=== PATIENT | male | born 1950 | race Caucasian/White ===

== ENCOUNTER 2016-02-28 20:48 | Emergency (ER) | payer MEDICARE, OTHER ==
[~2016-02-28] VITALS: Ht 172.7 cm; Wt 93.5 kg
[~2016-02-28 20:48] MED LIST: AZIT250T94 PO; BENA40TA54 PO; FLUT9.9S NASAL; HYD25 PO; HYT5 PO; IBUP-1542 PO; LORA10TA3 PO; LORA1TAB54 PO; MECL25TA2 PO; METF500T4 PO; MEVA40 PO
[2016-02-28 20:51] VITALS: Ht 172.7 cm; Wt 93.5 kg
[2016-02-28] MEDS ORDERED: LORA10TA3 PO (21:21)
--- NOTE | 2016-02-28 21:26 | ERD ---
ER Documentation Chief Complaint Date/Time DATE: 02/28/16 TIME: 21:24 Chief Complaint SORE THROAT AND COUGH X 3 DAYS HPI 65-year-old male with a history of hypertension and diabetes presenting with complaints of itching in his throat. He has had this for 3 days with associated cough. He states he has been here for the same symptoms before. He has some runny nose with some clear phlegm. No associated fevers, chills, difficulty swallowing, difficulty speaking, chest pain or shortness of breath. He states he has received an injection here in the past for the same symptoms which really helped him. ROS All systems reviewed and are negative except as per history of present illness. Medications Home Meds Active Scripts Loratadine* (Loratadine*) 10 Mg Tablet, 10 MG PO DAILY, #30 TAB Prov:BARRINGTON COHN MD 02/28/16 Fluticasone Propionate (Flonase Allergy Relief) 9.9 Ml [place].susp, 1 SPRAY NASAL BID, #1 BOTTLE TO EACH NOSTRIL Prov:LEA BIRMINGHAM 12/25/15 Loratadine* (Loratadine*) 10 Mg Tablet, 10 MG PO DAILY, #30 TAB Prov:LEA BIRMINGHAM 12/25/15 Meclizine Hcl* (Antivert*) 25 Mg Tablet, 25 MG PO Q6H Y for DIZZINESS, #20 TAB Prov:BAO DICKSON PA-C 07/11/15 Loratadine/Pseudoephedrine* (Claritin-D* 12 Hr) 5-120 Mg Tab.er.12h, 1 TAB PO Q12, #10 TAB.SA Prov:TELMA WEEMS DO 07/08/15 Ibuprofen* (Motrin*) 600 Mg Tab, 600 MG PO Q6, #30 TAB Prov:KIERAN COTO NP 02/18/15 Azithromycin* (Zithromax*) 250 Mg Tablet, 250 MG PO .SILVINA DIRECTED, #6 TAB TAKE 500 MG (2 TABS) THE FIRST DAY THEN 250 MG (1 TAB) DAYS 2-5 Prov:KIERAN COTO NP 02/18/15 Reported Medications Metformin* (Glucophage*) 500 Mg Tab, 1 TAB PO BID 06/15/13 Terazosin Hcl* (Hytrin*) 5 Mg Capsule, 1 CAP PO HS 06/15/13 Lovastatin (Lovastatin) 40 Mg Tablet, 1 TAB PO HS 06/15/13 Hydrochlorothiazide* (Hydrochlorothiazide*) 25 Mg Tab, 1 TAB PO DAILY 06/15/13 Benazepril Hcl* (Lotensin*) 40 Mg Tablet, 0.5 TAB PO BID 06/15/13 Allergies Allergies: Coded Allergies: No Known Allergy (Unverified , 02/28/16) PMhx/Soc History of Surgery: Yes (r. knee meniscus sx) Anesthesia Reaction: No Hx Neurological Disorder: No Hx Respiratory Disorders: No Hx Cardiac Disorders: Yes (htn, dm) Hx Psychiatric Problems: No Hx Miscellaneous Medical Probl: Yes (DM) Hx Alcohol Use: No Hx Substance Use: No Hx Tobacco Use: No Smoking Status: Never smoker FmHx Family History: No diabetes Physical Exam Vitals Vital Signs Date Time Temp Pulse Resp B/P Pulse Ox O2 Delivery O2 Flow Rate FiO2 02/28/16 20:51 97.7 94 18 165/74 98 Physical Exam Const: No apparent distress Head: Atraumatic Eyes: Normal Conjunctiva ENT: Normal External Ears, Nose and Mouth. Posterior oropharynx without significant erythema or exudate. no oropharyngeal swelling Neck: Full range of motion..~ No meningismus. No lymphadenopathy. Resp: Clear to auscultation bilaterally Cardio: Regular rate and rhythm, no murmurs Abd: Soft, non tender, non distended. Normal bowel sounds Skin: No petechiae or rashes Neur: Awake and alert Psych: Normal Mood and Affect Results 24 hrs Current Medications Medications (Trade) Dose Ordered Sig/Justin Route PRN Reason Start Time Stop Time Status Last Admin Dose Admin Diphenhydramine HCl (Benadryl) 25 mg ONCE ONCE IM 02/28/16 21:30 02/28/16 21:31 Procedures/MDM Patient is presenting with symptoms of likely allergic rhinitis with postnasal drip. There is no evidence of strep throat, peritonsillar abscess, angioedema, pneumonia, or bronchitis. Patient is protecting his airway and controlling his secretions. His vitals are all stable. I agreed to give the patient an injection of Benadryl for his symptoms and will discharge him with a prescription for Claritin. I advised to follow-up with his primary care physician in 2-3 days. Return precautions were given. Departure Diagnosis: Primary Impression: Allergic rhinitis with postnasal drip Condition: Stable Patient Instructions: Allergic Rhinitis Referrals: [facility] YOU HAVE RECEIVED A MEDICAL SCREENING EXAM AND THE RESULTS INDICATE THAT YOU DO NOT HAVE A CONDITION THAT REQUIRES URGENT TREATMENT IN THE EMERGENCY DEPARTMENT. FURTHER EVALUATION AND TREATMENT OF YOUR CONDITION CAN WAIT UNTIL YOU ARE SEEN IN YOUR DOCTORS OFFICE WITHIN THE NEXT 1-2 DAYS. IT IS YOUR RESPONSIBILITY TO MAKE AN APPOINTMENT FOR FOLOW-UP CARE. IF YOU HAVE A PRIMARY DOCTOR --you should call your primary doctor and schedule an appointment IF YOU DO NOT HAVE A PRIMARY DOCTOR YOU CAN CALL OUR PHYSICIAN REFERRAL HOTLINE AT IF YOU CAN NOT AFFORD TO SEE A PHYSICIAN YOU CAN CHOSE FROM THE FOLLOWING [facility] [id number] [facility] [address] [facility] [address] [facility] [address] [facility] [address] [facility]. [facility]. [address] MD Feb 28, 2016 21:26
[2016-02-28] MEDS ORDERED: DIPHENHYDRAMINE 50 MG INJ IM ONE (21:30)
[2016-02-28 21:48] VITALS: BP 153/72; PULSE 86; RESP 18; TEMP 98.6
== END 2016-02-28 21:48 | disposition home or self-care (01) ==
LOC: FTE 20:48
DX: J30.9 Allergic rhinitis, unspecified (principal); R09.82 Postnasal drip; I10 Essential (primary) hypertension; E11.9 Type 2 diabetes mellitus without complications; Z79.84 Long term (current) use of oral hypoglycemic drugs
CPT/HCPCS: 96372; 99284; J1200

== ENCOUNTER 2016-03-11 23:58 | Emergency (ER) | payer MEDICARE, OTHER ==
[~2016-03-11] VITALS: Ht 167.6 cm; Wt 93.0 kg
[2016-03-12 00:04] VITALS: Ht 167.6 cm; Wt 93.0 kg
[2016-03-12 01:17] LABS: URINE BLOOD (Dip) POC Trace-intact (NEGATIVE)
--- NOTE | 2016-03-12 01:28 | ERD ---
ER Documentation Chief Complaint Date/Time DATE: 03/12/16 TIME: 01:25 Chief Complaint COUGH, COLD, CONGESTION AND FEVER X 3 DAYS HPI This patient is a 65-year-old male with past medical history of hypertension and diabetes presenting to the emergency department with burning on urination which has been ongoing intermittently for the past 2 days. The patient denies any hematuria, fever, chills, nausea, vomiting, diarrhea or other symptoms at this time. There are no other alleviating or exacerbating factors at this time. ROS All systems reviewed and are negative except as per history of present illness. Medications Home Meds Active Scripts Ciprofloxacin Hcl* (Ciprofloxacin Hcl*) 500 Mg Tablet, 500 MG PO BID for 7 Days , TAB Prov:SHEMAR OSMAN PA-C 03/12/16 Loratadine* (Loratadine*) 10 Mg Tablet, 10 MG PO DAILY, #30 TAB Prov:BARRINGTON COHN MD 02/28/16 Fluticasone Propionate (Flonase Allergy Relief) 9.9 Ml [place].susp, 1 SPRAY NASAL BID, #1 BOTTLE TO EACH NOSTRIL Prov:LEA BIRMINGHAM 12/25/15 Loratadine* (Loratadine*) 10 Mg Tablet, 10 MG PO DAILY, #30 TAB Prov:LEA BIRMINGHAM 12/25/15 Meclizine Hcl* (Antivert*) 25 Mg Tablet, 25 MG PO Q6H Y for DIZZINESS, #20 TAB Prov:BAO DICKSON PA-C 07/11/15 Loratadine/Pseudoephedrine* (Claritin-D* 12 Hr) 5-120 Mg Tab.er.12h, 1 TAB PO Q12, #10 TAB.SA Prov:TELMA WEEMS DO 07/08/15 Ibuprofen* (Motrin*) 600 Mg Tab, 600 MG PO Q6, #30 TAB Prov:KIERAN COTO NP 02/18/15 Azithromycin* (Zithromax*) 250 Mg Tablet, 250 MG PO .JosePACK DIRECTED, #6 TAB TAKE 500 MG (2 TABS) THE FIRST DAY THEN 250 MG (1 TAB) DAYS 2-5 Prov:KIERAN COTO NP 02/18/15 Reported Medications Metformin* (Glucophage*) 500 Mg Tab, 1 TAB PO BID 06/15/13 Terazosin Hcl* (Hytrin*) 5 Mg Capsule, 1 CAP PO HS 06/15/13 Lovastatin (Lovastatin) 40 Mg Tablet, 1 TAB PO HS 06/15/13 Hydrochlorothiazide* (Hydrochlorothiazide*) 25 Mg Tab, 1 TAB PO DAILY 06/15/13 Benazepril Hcl* (Lotensin*) 40 Mg Tablet, 0.5 TAB PO BID 06/15/13 Allergies Allergies: Coded Allergies: No Known Allergy (Unverified , 02/28/16) PMhx/Soc History of Surgery: Yes (r. knee meniscus sx) Anesthesia Reaction: No Hx Neurological Disorder: No Hx Respiratory Disorders: No Hx Cardiac Disorders: Yes (htn, dm) Hx Psychiatric Problems: No Hx Miscellaneous Medical Probl: Yes (DM) Hx Alcohol Use: No Hx Substance Use: No Hx Tobacco Use: No Smoking Status: Never smoker FmHx Noncontributory for chief complaint Physical Exam Vitals Vital Signs Date Time Temp Pulse Resp B/P Pulse Ox O2 Delivery O2 Flow Rate FiO2 03/12/16 00:04 97.5 80 20 166/74 96 Physical Exam INITIAL VITAL SIGNS: Reviewed by me GENERAL: The patient is well developed and appropriate for usual state of health in no apparent distress HEENT: Pupils equal, round, and reactive to light. EOMI. There is no scleral icterus. NECK: C-spine is soft and supple, there is no meningismus. There is no cervical lymphadenopathy. LUNGS: Clear to auscultation bilaterally. There are no rales, wheezes or rhonchi. HEART: Regular rate and rhythm, no murmurs, clicks, rubs or gallops. ABDOMEN: Soft, non-tender, non-distended. There are bowel sounds in all four quadrants. No rebound or guarding. : There is no erythema, discharge, or edema to the glans penis. There is no scrotal erythema or edema. There is no CVA tenderness EXTREMITIES: There is no peripheral cyanosis or edema. No focal swelling or erythema. NEUROLOGICAL: The patient moves all four extremities with 5/5 strength. Cranial nerves II - XII are intact. Normal gait. Alert and oriented SKIN: There is no apparent rash or petechiae. HEME/LYMPHATIC: There is no evidence of excessive bruising or lymphedema. PSYCHIATRIC: The patient does not appear anxious or depressed. Results 24 hrs Laboratory Tests Test 03/12/16 01:17 Bedside Urine Blood Trace-intact Bedside Urine Glucose (UA) Negative Bedside Urine Ketones (LAB) Negative Bedside Urine Leukocyte Esterase (L 1+ Bedside Urine Nitrite (LAB) Negative Bedside Urine Protein (LAB) Negative Bedside Urine pH (LAB) 6.0 Current Medications Medications (Trade) Dose Ordered Sig/Justin Route PRN Reason Start Time Stop Time Status Last Admin Dose Admin Ceftriaxone Sodium (Rocephin) 250 mg ONCE ONCE IM 03/12/16 02:30 03/12/16 02:31 DC 03/12/16 02:14 Azithromycin (Zithromax) 1,000 mg ONCE ONCE PO 03/12/16 02:30 03/12/16 02:31 DC 03/12/16 02:14 Procedures/MDM Labs: Lab results reviewed. Urinalysis shows 1+leukocytes present. Medications in the department: 1 gram PO Azithromycin. 250 mg IM Rocephin. MDM: 65-year-old male presenting to the department with pain while urinating for the past 2 days. On physical examination there is no urethral discharge or erythema or edema to the glans penis there is no erythema or edema to the scrotum. On urinalysis there is 1+ leukocyte and the patient's primary diagnosis is urinary tract infection, secondary diagnosis is urethritis. A GC chlamydia was ordered and the results will be relayed to the patient when received. The patient will be given a prescription for ciprofloxacin for outpatient treatment of urinary tract infection. The patient will be treated in the department with 1 gram Azithromycin and 250 mg Rocephin for Chlamydia/ Gonorrhea, while results are pending. The patient's questions and concerns of been addressed. The patient understands the diagnosis. The patient is stable for discharge at this time. Departure Diagnosis: Primary Impression: Urinary tract infection Additional Impression: Urethritis Condition: Stable Patient Instructions: Urethritis in Men, Urinary Tract Infections in Men Additional Instructions: No mas mejor en 2-3 will, regresar. Mas peor en 24 horas, regresear rapidamente. Ir a doctor primario in 5-7 will. Usar instrucciones cuando mustapha medicamento. The patient's blood pressure was elevated (>120/80) but appears stable without evidence of hypertension emergency or urgency. The patient was counseled about the risks of hypertension and urged to pursue outpatient monitoring and therapy within a week with their primary care physician. SHEMAR OSMAN PA-C Mar 12, 2016 01:28
[2016-03-12] MEDS ORDERED: CIPR500T4 PO (02:06)
[2016-03-12] MEDS ORDERED: CEFTRIAXONE 250 MG INJ IM ONE (02:30)
[2016-03-12] MEDS ORDERED: AZITHROMYCIN 250 MG TAB PO ONE (02:30)
== END 2016-03-12 02:34 | disposition home or self-care (01) ==
LOC: FTE 23:58
DX: N39.0 Urinary tract infection, site not specified (principal); I10 Essential (primary) hypertension; E11.9 Type 2 diabetes mellitus without complications; Z79.84 Long term (current) use of oral hypoglycemic drugs
CPT/HCPCS: 81003; 87591; 96372; 99284; J0696

== ENCOUNTER 2016-12-17 22:50 | Emergency (ER) | payer MEDICARE, OTHER ==
[~2016-12-17] VITALS: Ht 172.7 cm; Wt 91.0 kg
[~2016-12-17 22:50] MED LIST changes: +CIPR500T4 PO; -HYD25 PO; +HYDR25TA6 PO
[2016-12-17 22:57] VITALS: Ht 172.7 cm; Wt 91.0 kg
[2016-12-18] MEDS ORDERED: ONDANSETRON 4 MG INJ IV STA (00:21)
--- NOTE | 2016-12-18 00:21 | ERD ---
ER Documentation Chief Complaint Chief Complaint bib self, cc: generalized body aches and cough HPI This 66 yearold male patient present to ED with c/o diarrhea this AM, epigastric pain that improved with Pepto. pt reports fatigue, epigastric pain returned with cramps and belching. denies chest pain, SOB, palpations, or dizziness, medical history + DM, HTN, hyperlipidemia ROS All systems reviewed and are negative except as per history of present illness. Medications Home Meds Active Scripts Ciprofloxacin Hcl* (Ciprofloxacin Hcl*) 500 Mg Tablet, 500 MG PO BID for 7 Days , TAB Prov:SHEMAR OSMAN PA-C 03/12/16 Loratadine* (Loratadine*) 10 Mg Tablet, 10 MG PO DAILY, #30 TAB Prov:BARRINGTON COHN MD 02/28/16 Fluticasone Propionate (Flonase Allergy Relief) 9.9 Ml [place].susp, 1 SPRAY NASAL BID, #1 BOTTLE TO EACH NOSTRIL Prov:LEA BIRMINGHAM 12/25/15 Loratadine* (Loratadine*) 10 Mg Tablet, 10 MG PO DAILY, #30 TAB Prov:LEA BIRMINGHAM 12/25/15 Meclizine Hcl* (Antivert*) 25 Mg Tablet, 25 MG PO Q6H Y for DIZZINESS, #20 TAB Prov:BAO DICKSON PA-C 07/11/15 Loratadine/Pseudoephedrine* (Claritin-D* 12 Hr) 5-120 Mg Tab.er.12h, 1 TAB PO Q12, #10 TAB.SA Prov:TELMA WEEMS DO 07/08/15 Ibuprofen* (Motrin*) 600 Mg Tab, 600 MG PO Q6, #30 TAB Prov:KIERAN COTO NP 02/18/15 Azithromycin* (Zithromax*) 250 Mg Tablet, 250 MG PO .SILVINA DIRECTED, #6 TAB TAKE 500 MG (2 TABS) THE FIRST DAY THEN 250 MG (1 TAB) DAYS 2-5 Prov:KIERAN COTO NP 02/18/15 Reported Medications Metformin* (Glucophage*) 500 Mg Tab, 1 TAB PO BID 06/15/13 Terazosin Hcl* (Hytrin*) 5 Mg Capsule, 1 CAP PO HS 06/15/13 Lovastatin (Lovastatin) 40 Mg Tablet, 1 TAB PO HS 06/15/13 Hydrochlorothiazide* (Hydrochlorothiazide*) 25 Mg Tab, 1 TAB PO DAILY 06/15/13 Benazepril Hcl* (Lotensin*) 40 Mg Tablet, 0.5 TAB PO BID 06/15/13 Allergies Allergies: Coded Allergies: No Known Allergy (Unverified , 02/28/16) PMhx/Soc History of Surgery: Yes (r. knee meniscus sx) Anesthesia Reaction: No Hx Neurological Disorder: No Hx Respiratory Disorders: No Hx Cardiac Disorders: Yes (htn, dm) Hx Psychiatric Problems: No Hx Miscellaneous Medical Probl: Yes (DM) Hx Alcohol Use: No Hx Substance Use: No Hx Tobacco Use: No Physical Exam Vitals Vital Signs Date Time Temp Pulse Resp B/P Pulse Ox O2 Delivery O2 Flow Rate FiO2 12/17/16 22:57 99.0 96 19 141/81 100 Vitals stable, triage notes reviewed Physical Exam Const: Well-nourished well-appearing well-hydrated 66-year-old male patient in no acute distress Head: Eyes: ENT: Neck: Neck supple, no JVD Resp: Clear to auscultation bilaterally, no rales wheezes or rhonchi Cardio: S1-S2, no S3-S4 regular rate and rhythm, no murmurs Abd: Abdomen distended, firm, tympanic to percussion, nontender to palpation , it is CVA tenderness, Lopez's sign negative, negative CVA tenderness, Skin: No petechiae or rashes Back: No midline or flank tenderness Ext: No cyanosis, or edema Neur: Awake and alert Psych: Normal Mood and Affect Result Diagram: 12/18/164212/18/163 Results 24 hrs Laboratory Tests Test 12/18/16 00:43 White Blood Count 11.510^3/ul Red Blood Count 4.2710^6/ul Hemoglobin 12.7g/dl Hematocrit 38.1% Mean Corpuscular Volume 89.2fl Mean Corpuscular Hemoglobin 29.7pg Mean Corpuscular Hemoglobin Concent 33.3g/dl Red Cell Distribution Width 12.6% Platelet Count 14930^3/UL Mean Platelet Volume 10.7fl Neutrophils % 78.0% Lymphocytes % 11.4% Monocytes % 8.2% Eosinophils % 1.4% Basophils % 0.3% Nucleated Red Blood Cells % 0.0/100WBC Neutrophils # 9.010^3/ul Lymphocytes # 1.310^3/ul Monocytes # 1.010^3/ul Eosinophils # 0.210^3/ul Basophils # 0.010^3/ul Nucleated Red Blood Cells # 0.010^3/ul Urine Color YELLOW Urine Clarity CLEAR Urine pH 7.0 Urine Specific Hanna 1.020 Urine Ketones NEGATIVEmg/dL Urine Nitrite NEGATIVEmg/dL Urine Bilirubin NEGATIVEmg/dL Urine Urobilinogen NEGATIVEmg/dL Urine Leukocyte Esterase NEGATIVELeu/ul Urine Hemoglobin NEGATIVEmg/dL Urine Glucose NEGATIVEmg/dL Urine Total Protein NEGATIVEmg/dl Sodium Level 136mmol/L Potassium Level 4.4mmol/L Chloride Level 100mmol/L Carbon Dioxide Level 29mmol/L Anion Gap 11 Blood Urea Nitrogen 29mg/dl Creatinine 1.04mg/dl Glucose Level 114mg/dl Calcium Level 9.2mg/dl Total Bilirubin 0.2mg/dl Direct Bilirubin 0.00mg/dl Indirect Bilirubin 0.2mg/dl Aspartate Amino Transf (AST/SGOT) 27IU/L Alanine Aminotransferase (ALT/SGPT) 45IU/L Alkaline Phosphatase 69IU/L Troponin I < 0.012ng/ml Total Protein 7.4g/dl Albumin 4.1g/dl Globulin 3.30g/dl Albumin/Globulin Ratio 1.24 Lipase 127U/L Current Medications Medications (Trade) Dose Ordered Sig/Justin Route PRN Reason Start Time Stop Time Status Last Admin Dose Admin Ondansetron HCl (Zofran Inj) 4 mg ONCE STAT IV 12/18/16 00:21 12/18/16 00:25 DC 12/18/16 00:52 Aspirin (Aspirin) 324 mg ONCE ONCE PO 12/18/16 00:30 12/18/16 00:31 DC 12/18/16 00:51 Pantoprazole (Protonix Iv) 40 mg ONCE ONCE IV 12/18/16 00:30 12/18/16 00:31 DC 12/18/16 00:52 Interpretation text CBC shows no evidence of hemorrhage or infection Chemistry shows no evidence of significant electrolyte abnormalities or renal insufficiency Liver function tests shows no evidence of acute biliary or hepatic dysfunction Lipase shows no evidence of acute pancreatitis Cardiac biomarkers show no evidence of acute myocardial injury or coronary ischemia Procedures/MDM EKG read by Dr. Mckeon Rate/Rhythm: Regular rate and rhythm at a rate of 80 bpm no ectopy Intervals: Normal Impression: No evidence of ischemia or arrhythmia PROCEDURE: XR Chest. CLINICAL INDICATION: Abdominal pain. TECHNIQUE: Single frontal view of the chest. COMPARISON: Plain film chest dated 07/11/2015 FINDINGS: The cardiomediastinal silhouette is within normal limits. The lungs are clear. No signs of pleural fluid or pneumothorax are seen. The osseous structures and soft tissues are unremarkable. IMPRESSION: No evidence for active cardiopulmonary disease. Electronically viewed and signed by Physician Tess on 12/18/2016 01:12 PROCEDURE: CT Abdomen and Pelvis without contrast. CLINICAL INDICATION: Abdominal pain. TECHNIQUE: A CT scan of the abdomen and pelvis was performed without intravenous contrast. Coronal and sagittal reformatted images were generated. Images were reviewed on a high-resolution PACS workstation. CTDIvol: 18.20 mGy. DLP: 1233.97 mGy-cm. One or more of the following dose reduction techniques were used: - Automated exposure control. - Adjustment of the mA and/or kV according to patient size. - Use of iterative reconstruction technique. COMPARISON: None. FINDINGS: There is a small pericardial effusion. The lung bases are clear. Evaluation of the abdominal and pelvic viscera is limited by the lack of oral and intravenous contrast. The liver is unremarkable. The gallbladder is normal in appearance. The common bile duct is not dilated. The spleen is not enlarged. No pancreatic lesion is identified and there is no pancreatic ductal dilatation. The adrenal glands are unremarkable. The kidneys are normal in size. There is mild symmetric perinephric fat stranding, probably age-related. No hydronephrosis is seen. No urinary stone is identified. There are bilateral renal cysts measuring up to 1.8 cm on the left. The small and large bowel are normal in caliber. There is no bowel wall thickening. The appendix is normal. The urinary bladder is unremarkable. The pelvic organs are within normal limits. There is a small fat containing right inguinal hernia. No lymphadenopathy is identified. There is no ascites. No pneumoperitoneum is seen. There are minimal arterial calcifications. No suspicious osseous lesion is idenitified. IMPRESSION: 1. No inflammation, mass, or lymphadenopathy. 2. Normal appendix. 3. No obstructive uropathy or urinary stone. 4. Small fat containing right inguinal hernia. 5. Small pericardial effusion. This 66-year-old male patient presents to emergency department with abdominal pain, distention, belching, diarrhea this morning which has subsided. Patient is a diabetic with hypertension, and high cholesterol. Emergency room course includes history, and physical exam, given patient's age and symptoms is working differential diagnosis includes acute coronary syndromes, cholecystitis , pancreatitis, diverticulitis. Patient receives EKG normal sinus rhythm at a ventricular rate of 80 bpm, chest x-ray negative for evidence of cardiopulmonary disease as read by radiologist. Serology with mild elevation of WBCs this is a subclinical finding, no hemorrhage, anemia noted, no evidence of renal insufficiency electrolyte imbalance, pancreatitis, hepatitis, or coronary ischemia. Urinalysis negative for evidence of leukocytosis, nitrates or hematuria. Patient receives 1 L of normal saline, four 81 mg baby aspirin chewed, Zofran, Protonix, and CAT scan of abdomen is read by radiologist, no inflammation, mass, or lymphadenopathy, normal appendix, no obstruction uropathy , or urinary stone. Small fat-containing right inguinal hernia, small pericardial effusion see above for full documentation. This small pericardial effusion discussed with supervising physician Dr. Mckeon, no intervention indicated emergently, patient to follow-up with primary care physician. Plan to discharge home with ranitidine 150 twice daily, Mylanta as needed, follow-up with primary care physician for reevaluation in 48 hours, return to emergency department for any change in symptoms, chest pain, shortness of breath, palpitations, dizziness, nausea, or vomiting. Patient is stable with no new complaints during ER course, clinically there is no current evidence to suggest meningitis, sepsis, acute abdomen, acute coronary syndromes, pulmonary embolism or any other emergent condition appearing to require further evaluation or hospitalization. I feel the patient is stable for discharge at this time. I have discussed results, examination findings, the treatment plan with the patient and family present prior to discharge. Indications for emergent reevaluation, side effects of medication were also discussed. All questions were answered. Patient verbalizes understanding and agrees with plan of care. Departure Diagnosis: Primary Impression: Gastroenteritis Condition: Good Patient Instructions: Gastroenteritis, Non-Infectious (Child) (Adult) [facility]errals[facility] Additional Instructions: Thank you for for coming to [facility] for your care today. Please ask your nurse or provider if you have questions about your care today and do not leave until all your questions have been answered. Please use any medications given as directed and follow-up with your doctor (or the doctor you were referred to) in the next 2-3 days. If you do not have a primary care doctor you may follow up at the [facility] (listed below). You may also use motrin and tylenol as needed for fever and/or pain unless instructed otherwise by your provider or nurse. Indications for more urgent follow-up have been discussed, but you may return to the Emergency Department at ANY time for any worrisome or worsening symptoms. If you have abdominal pain, please know that no test or exam you received is perfect and you should follow up within 8 hours for continued pain. If you had any imaging studies today, such as an X-Ray or CT Scan, these studies will be reviewed later by a radiologist. You will be called if there are important findings that were not identified today, so make sure the contact information you provided at registration is correct. If you received any narcotic pain control medicine today, such as Vicodin, Morphine or Dilaudid, your coordination and judgment may be affected for a number of hours. Please do not drive or operate heavy machinery, and you may want someone to assist you at home. If you were given a prescription for narcotic medication, be aware that it is very addictive- use sparingly and only if necessary. LORELEI BUSTAMANTE Dec 18, 2016 00:21
[2016-12-18] MEDS ORDERED: ASPIRIN 81 MG TAB PO ONE (00:30)
[2016-12-18] MEDS ORDERED: PANTOPRAZOLE 40 MG INJ IV ONE (00:30)
--- NOTE | 2016-12-18 01:13 | RADRPT ---
PROCEDURE: XR Chest. CLINICAL INDICATION: Abdominal pain. TECHNIQUE: Single frontal view of the chest. COMPARISON: Plain film chest dated 07/11/2015 FINDINGS: The cardiomediastinal silhouette is within normal limits. The lungs are clear. No signs of pleural f luid or pneumothorax are seen. The osseous structures and soft tissues are unremarkable. IMPRESSION: No evidence for active cardiopulmonary disease. RPTAT: [facility] Physician Tess Date Time Electronically viewed and signed by Irene Sanchez Physician on 12/18/2016 01:12 RS/
[2016-12-18 01:28] LABS: BASOPHILS % 0.3 % (0.0-2.0); EOSINOPHILS # 0.2 10^3/ul (0.0-0.5); EOSINOPHILS % 1.4 % (0.0-7.0); HEMATOCRIT 38.1 % (42.0-52.0); HEMOGLOBIN 12.7 g/dl (14.0-18.0); LYMPHOCYTES # 1.3 10^3/ul (0.8-2.9); LYMPHOCYTES % 11.4 % (15.0-51.0); MEAN CORPUSCULAR HEMOGLOBIN 29.7 pg (29.0-33.0); MEAN CORPUSCULAR HGB CONC 33.3 g/dl (32.0-37.0); MEAN CORPUSCULAR VOLUME 89.2 fl (82.0-101.0); MEAN PLATELET VOLUME 10.7 fl (7.4-10.4); MONOCYTES % 8.2 % (0.0-11.0); PLATELET COUNT 213 10^3/UL (140-415); RED BLOOD COUNT 4.27 10^6/ul (4.70-6.10); RED CELL DISTRIBUTION WIDTH 12.6 % (11.5-14.5); WHITE BLOOD COUNT 11.5 10^3/ul (4.8-10.8)
--- NOTE | 2016-12-18 01:37 | RADRPT ---
PROCEDURE: CT Abdomen and Pelvis without contrast. CLINICAL INDICATION: Abdominal pain. TECHNIQUE: A CT scan of the abdomen and pelvis was performed without intravenous contrast. Tejeda l and sagittal reformatted images were generated. Images were reviewed on a high-resolution PACS wor kstation. CTDIvol: 18.20 mGy. DLP: 1233.97 mGy-cm. One or more of the following dose reduction techniques were used: - Automated exposure control. - Adjustment of the mA and/or kV according to patient size. - Use of iterative reconstruction technique. COMPARISON: None. FINDINGS: There is a small pericardial effusion. The lung bases are clear. Evaluation of the abdominal and pelvic viscera is limited by the lack of oral and intravenous contra st. The liver is unremarkable. The gallbladder is normal in appearance. The common bile duct is not dila neftali. The spleen is not enlarged. No pancreatic lesion is identified and there is no pancreatic ducta l dilatation. The adrenal glands are unremarkable. The kidneys are normal in size. There is mild symmetric perinephric fat stranding, probably age-rela neftali. No hydronephrosis is seen. No urinary stone is identified. There are bilateral renal cysts altaf suring up to 1.8 cm on the left. The small and large bowel are normal in caliber. There is no bowel wall thickening. The appendix is normal. The urinary bladder is unremarkable. The pelvic organs are within normal limits. There is a small fa t containing right inguinal hernia. No lymphadenopathy is identified. There is no ascites. No pneumoperitoneum is seen. There are minima l arterial calcifications. No suspicious osseous lesion is idenitified. IMPRESSION: 1. No inflammation, mass, or lymphadenopathy. 2. Normal appendix. 3. No obstructive uropathy or urinary stone. 4. Small fat containing right inguinal hernia. 5. Small pericardial effusion. RPTAT: HTAR .Dayo Wilkes MD, MD Date Time Electronically viewed and signed by .Dayo Wilkes MD, on 12/18/2016 01:37 .R/
[2016-12-18 01:49] LABS: ALANINE AMINOTRANSFERASE 45 IU/L (13-69); ALBUMIN 4.1 g/dl (3.3-4.9); ALBUMIN/GLOBULIN RATIO 1.24; ALKALINE PHOSPHATASE 69 IU/L (42-121); ANION GAP 11 (8-16); ASPARTATE AMINO TRANSFERASE 27 IU/L (15-46); BILIRUBIN,INDIRECT 0.2 mg/dl (0-1.1); BILIRUBIN,TOTAL 0.2 mg/dl (0.2-1.3); BLOOD UREA NITROGEN 29 mg/dl (7-20); CALCIUM 9.2 mg/dl (8.4-10.2); CARBON DIOXIDE 29 mmol/L (21-31); CHLORIDE 100 mmol/L (97-110); CREATININE 1.04 mg/dl (0.61-1.24); GLUCOSE 114 mg/dl (70-220); POTASSIUM 4.4 mmol/L (3.5-5.1); SODIUM 136 mmol/L (135-144); TOTAL PROTEIN 7.4 g/dl (6.1-8.1)
[2016-12-18 02:00] LABS: ADD UMIC NO; UR ASCORBIC ACID NEGATIVE (NEGATIVE); UR BILIRUBIN (Dip) NEGATIVE (NEGATIVE); UR BLOOD (Dip) NEGATIVE (NEGATIVE); UR CLARITY CLEAR (CLEAR); UR COLOR YELLOW (YELLOW); UR GLUCOSE (Dip) NEGATIVE (NEGATIVE); UR KETONES (Dip) NEGATIVE (NEGATIVE); UR LEUKOCYTE ESTERASE (Dip) NEGATIVE Leu/ul (NEGATIVE); UR NITRITE (Dip) NEGATIVE (NEGATIVE); UR TOTAL PROTEIN (Dip) NEGATIVE (NEGATIVE); UR UROBILINOGEN (Dip) NEGATIVE (NEGATIVE)
[2016-12-18 02:10] LABS: TROPONIN-I < 0.012 ng/ml (0.00-0.12)
[2016-12-18 03:36] VITALS: BP 128/72; PULSE 76; RESP 16
[2016-12-18] MEDS ORDERED: MAG-19 PO (03:41)
[2016-12-18] MEDS ORDERED: RANI150T9 PO (03:41)
== END 2016-12-18 03:46 | disposition home or self-care (01) ==
LOC: FTE 22:50
DX: K52.9 Noninfective gastroenteritis and colitis, unspecified (principal); I10 Essential (primary) hypertension; E11.9 Type 2 diabetes mellitus without complications; Z79.84 Long term (current) use of oral hypoglycemic drugs
CPT/HCPCS: 36415; 71010; 74176; 80053; 81003; 83690; 84484; 85025; 93005; 96374; 96375; 99285; C9113; J2405

== ENCOUNTER 2017-03-25 18:30 | Emergency (ER) | END 2017-03-25 20:07 | disposition home or self-care (01) ==

== ENCOUNTER 2017-07-02 21:21 | Emergency (ER) | END 2017-07-03 00:34 | disposition home or self-care (01) ==

== ENCOUNTER 2017-07-30 05:29 | Emergency (ER) | END 2017-07-30 06:27 | disposition home or self-care (01) ==

== ENCOUNTER 2017-10-24 10:48 | Emergency (ER) | END 2017-10-24 11:35 | disposition home or self-care (01) ==

== ENCOUNTER 2018-02-20 14:48 | Emergency (ER) | payer MEDICARE, OTHER ==
[~2018-02-20] VITALS: Ht 167.6 cm; Wt 88.0 kg
[~2018-02-20 14:48] MED LIST changes: -AZIT250T94 PO; +BENA20TA4 PO; -BENA40TA54 PO; -CIPR500T4 PO; -FLUT9.9S NASAL; -HYT5 PO; -IBUP-1542 PO; -LORA10TA3 PO; -LORA1TAB54 PO; -MECL25TA2 PO; +METF-849 PO; -METF500T4 PO
[2018-02-20 14:51] VITALS: BP 139/74; PULSE 91; RESP 20; Ht 167.6 cm; Wt 88.0 kg
[2018-02-20] MEDS ORDERED: SODI126M NASAL (15:47)
[2018-02-20] MEDS ORDERED: GUAI-637 PO (15:47)
--- NOTE | 2018-02-20 15:53 | ERD ---
ER Documentation Chief Complaint Chief Complaint Complains of flu like symptoms HPI 67-year-old male with history of diabetes and hypertension presents the ED complaining of cough and runny nose times 5 days. Cough is nonproductive. Patient reports decreased appetite. Patient denies any fever, shortness of breath, headache or body aches, abdominal pain, vomiting, or diarrhea. Denies any other medical history. ROS All systems reviewed and are negative except as per history of present illness. Medications Home Meds Active Scripts Guaifenesin* (Robitussin*) 100 Mg/5 Ml Syrup, 200 MG PO Q4H PRN for COUGH, #120 ML Prov:JESSIKA MOREJON. JEWELRY SORTER 02/20/18 Sodium Chloride (Saline Nasal Mist) 126 Ml Mist, 2 SPRAY NASAL Q2H PRN for NASAL CONGESTION, #1 BOTTLE Prov:JESSIKA MOREJON. JEWELRY SORTER 02/20/18 Reported Medications Benazepril Hcl* (Benazepril Hcl*) 20 Mg Tablet, 20 MG PO BID, #60 TAB 10/24/17 Metformin* (Glucophage*) 500 Mg Tab, 1 TAB PO BID 06/15/13 Lovastatin (Lovastatin) 40 Mg Tablet, 1 TAB PO HS 06/15/13 Hydrochlorothiazide* (Hydrochlorothiazide*) 25 Mg Tab, 1 TAB PO DAILY 06/15/13 Allergies Allergies: Coded Allergies: No Known Allergy (Unverified , 02/28/16) PMhx/Soc History of Surgery: Yes (r. knee meniscus sx) Anesthesia Reaction: No Hx Neurological Disorder: No Hx Respiratory Disorders: No Hx Cardiac Disorders: Yes (htn, dm, high cholesterol) Hx Psychiatric Problems: No Hx Miscellaneous Medical Probl: Yes (DM) Hx Alcohol Use: Yes (socially) Hx Substance Use: No Hx Tobacco Use: No Smoking Status: Never smoker Physical Exam Vitals Vital Signs Date Temp Pulse Resp B/P (MAP) Pulse Ox O2 O2 Flow FiO2 Time Delivery Rate 02/20/18 98.0 91 20 139/74 97 14:51 (95) Physical Exam General: Well-developed, well-nourished, conscious and coherent, in no distress Skin: Warm and dry without rash, good texture and turgor Head: Normocephalic without evidence of trauma Nose/Face: Nasal mucosa erythematous and swollen Mouth/throat: Mucous membranes are moist. Posterior pharynx clear without erythema or exudates Chest: Normal AP diameter. Good expansion without retractions. Nontender. Lungs are clear to auscultate bilaterally with good tidal volume Heart: Regular rate and rhythm. No murmur, rub, or gallops heard Extremities: Full range of motion. Good strength bilaterally. No erythema, ecchymosis, or edema. Peripheral pulses are intact. Sensation intact Neuro: Alert and oriented 4, GCS 15. Procedures/MDM Patient is afebrile, in no respiratory distress. Lungs are clear to auscultate. I doubt that patient has pneumonia or bronchitis. Likely patient's symptoms are result of viral upper respiratory infection. I doubt influenza. Patient appears well, stable for discharge and outpatient management. Medical decision making shared with patient and family. Education provided to patient and family. Patient and family expressed understanding of the plan. Medications on discharge: Saline nasal spray, Robitussin. Follow-up: Primary care provider in 2-3 days or return to ED if worse. Disclaimer: Inadvertent spelling and grammatical errors are likely due to EHR/dictation software use and do not reflect on the overall quality of patient care. Also, please note that the electronic time recorded on this note does not necessarily reflect the actual time of the patient encounter. Departure Diagnosis: Primary Impression: Upper respiratory infection URI type: acute nasopharyngitis (common cold) Qualified Codes: J00 - Acute nasopharyngitis [common cold] Condition: Stable Patient Instructions: Adult Self-Care for Colds Referrals: DOCTOR,NOT ON STAFF (PCP) [facility] ([facility]) Usted se oseguera hecho un examen mdico de control que le indica que no est en eduardo condicin que requiera tratamiento urgente en el Departamento de Emergencia. Un estudio ms profundo y el tratamiento de pereira condicin pueden esperar sin ningn riesgo hasta que usted sea atendida/o en el consultorio de pereira mdico o eduardo clnica. Es responsabilidad suya arreglar eduardo sylwia para el seguimiento del alysa. MANEJO DE CONDICIONES NO URGENTES EN EL FUTURO 1) Si usted tiene un mdico de atencin primaria: Usted debera llamar a pereira mdico de atencin primaria antes de venir al departamento de emergencia. Despus de las horas de consultorio, pereira doctor o pereira asociado/a est disponible por telfono. El mdico o enfermero de elton en el servicio telefnico puede asesorarle por case medio para atender el problema, o alysa contrario se puede programar eduardo sylwia. 2) Si usted no tiene un mdico de atencin primaria: Llame al mdico o clnica de referencia que aparece abajo fay las horas de consultorio para hacer eduardo sylwia para que le vean. CLINICAS: [place] [phone] [facility] [phone] [facility] [phone] [facility]. [place] [phone] [facility]. [place] [phone] [facility]. [phone] [address] Additional Instructions: Llame al doctor MAANA y dinesh eduardo SYLWIA PARA DENTRO DE 2-3 WRIGHT.Dgale a la secretaria que nosotros le instruimos hacer esta sylwia.Avise o llame si pereira condicin se empeora antes de la sylwia. Regresa aqui si peor o no mejor. JESSIKA MOREJON NP Feb 20, 2018 15:53
== END 2018-02-20 15:57 | disposition home or self-care (01) ==
LOC: FTE 14:48
DX: J06.9 Acute upper respiratory infection, unspecified (principal); I10 Essential (primary) hypertension; E11.9 Type 2 diabetes mellitus without complications; R40.2412 Glasgow coma scale score 13-15, at arrival to emergency department; Z79.84 Long term (current) use of oral hypoglycemic drugs
CPT/HCPCS: 99282

== ENCOUNTER 2018-04-12 20:12 | Emergency (ER) | payer MEDICARE, OTHER ==
[~2018-04-12] VITALS: Wt 87.5 kg
[~2018-04-12 20:12] MED LIST changes: +GUAI-637 PO; +SODI126M NASAL
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
[2018-04-13] MEDS ORDERED: BROMFENAC SODIUM 1.7 ML OPH DROP LEFT EYE ONE
[2018-04-13] MEDS ORDERED: IBUP-1561 PO (01:37)
[2018-04-13 01:58] VITALS: BP 145/78; PULSE 78; RESP 16
== END 2018-04-13 02:04 | disposition home or self-care (01) ==
LOC: FTE 20:12
DX: S00.12XA Contusion of left eyelid and periocular area, initial encounter (principal); E11.9 Type 2 diabetes mellitus without complications; I10 Essential (primary) hypertension; Y04.2XXA Assault by strike against or bumped into by another person, initial encounter; Z79.84 Long term (current) use of oral hypoglycemic drugs
CPT/HCPCS: 70480